=== PATIENT | female | born 1950 | race Hispanic/Latino ===

== ENCOUNTER 2020-06-03 07:48 | Outpatient (CLI) | payer MEDICARE ==
--- NOTE | 2020-06-03 08:45 | ULT ---
US Hepatic Doppler History: Cirrhosis Comparison: None. Findings: Real-time grayscale, color and spectral analysis of the liver was performed. Hepatic contour is nodular without overt mass. Vicious portion of pancreas, aorta and IVC are unremarkable. Portal vein is patent with antegrade flow. Hepatic veins are patent with antegrade flow. Liver measures 16.1 cm in length. Common bile duct measures 6 mm. Prior cholecystectomy. No intrahepa tic biliary dilatation. Hepatic artery is patent. Spleen is enlarged measuring 15.5 cm. Splenic artery and vein are patent. Impression: 1. Hepatic cirrhosis without mass. 2. Normal directional flow of the portal and hepatic veins. 3. Splenomegaly and sequela of portal hypertension.
== END 2020-06-03 07:49 | disposition home or self-care (01) ==
LOC: SCSULT 07:48
PROVIDERS: ATTEND Internal Medicine Gastroenterology
DX: K74.60 Unspecified cirrhosis of liver (principal); K72.90 Hepatic failure, unspecified without coma; R16.1 Splenomegaly, not elsewhere classified; K76.6 Portal hypertension
CPT/HCPCS: 76705

== ENCOUNTER 2020-07-08 05:46 | Outpatient (CLI) | payer MEDICARE, OTHER ==
[2020-07-09 13:49] LABS: SARS-CoV-2 MS2 Positive; SARS-CoV-2 N Gene Negative; SARS-CoV-2 S Gene Negative; SARS-CoV-2 by NAA Not Detected (NotDetected); SARS-CoV-2 orf1ab Negative
== END 2020-07-08 05:47 | disposition home or self-care (01) ==
LOC: LABBT 05:46
PROVIDERS: ATTEND Internal Medicine Gastroenterology
DX: Z01.812 Encounter for preprocedural laboratory examination (principal); Z20.828 Contact with and (suspected) exposure to other viral communicable diseases; I85.00 Esophageal varices without bleeding; D64.9 Anemia, unspecified; K31.7 Polyp of stomach and duodenum
CPT/HCPCS: 87635; U0003

== ENCOUNTER 2020-11-24 12:38 | Emergency (ER) | payer MEDICARE ==
[2020-11-24 13:31] LABS: #Eosinphils 0.5 thou/uL (0.0-0.7); #Lymphocytes 1.2 thou/uL (1.20-3.40); #Monocytes 0.6 thou/uL (0.11-0.59); #Neutrophils 2.7 thou/uL (1.40-6.50); %Basophils 0.6 % (0.0-1.0); %Eosinophils 9.2 % (0.0-10.0); %Lymphocytes 23.7 % (21.0-51.0); %Monocytes 12.4 % (0.0-10.0); %Neutrophils 54.2 % (42.0-75.0); Hemoglobin 12.7 g/dL (12.0-16.0); Mean Corpuscular Hemoglobin 32.6 pg (27.0-31.0); Mean Corpuscular Volume 95.9 fL (78.0-98.0); RBC Distribution Width 13.4 % (11.5-14.5); Red Blood Cell (RBC) Count 3.89 mill/uL (4.20-5.40)
[2020-11-24 13:48] LABS: Mean Platelet Volume 7.9 fL (7.4-10.4); Platelet Count 86 thou/uL (130-400); Platelet Morphology Comment Appears Decreased; RBC Morphology Normal
[2020-11-24 13:50] LABS: ALT (SGPT) 27 U/L (8-55); AST (SGOT) 38 U/L (5-34); Albumin 3.4 g/dL (3.4-4.8); Alkaline Phosphatase 101 U/L (40-110); Anion Gap 12 mmol/L (10-20); BUN (Urea Nitrogen) 24 mg/dL (9.8-20.1); Bilirubin, Total 1.7 mg/dL (0.2-1.2); Calc. Creatinine Clearance 0 mL/min (70-130); Calcium 9.1 mg/dL (7.8-10.44); Carbon Dioxide 25 mmol/L (23-31); Chloride 105 mmol/L (98-107); Glucose 112 mg/dL (83-110); Lipase 47 U/L (8-78); Magnesium 1.7 mg/dL (1.6-2.6); Potassium 3.7 mmol/L (3.5-5.1); Protein, Total 8.4 g/dL (6.0-8.3); Sodium 138 mmol/L (136-145)
--- NOTE | 2020-11-24 13:50 | RAD ---
PORTABLE CHEST 1 VIEW: Date: 11/24/2020 Time: 1339 hours HISTORY: Weakness, fatigue, dizziness, confusion. FINDINGS: The heart size is normal. The aorta is tortuous. The lungs are expanded without lobar consolidation, pneumothoraces, or pleural effusions. IMPRESSION: No radiographic evidence of acute cardiopulmonary process. POS: AH
--- NOTE | 2020-11-24 14:34 | CT ---
CT BRAIN WITHOUT CONTRAST: 11/24/20 HISTORY: Headache. Dizziness. Fatigue. Confusion, altered mental status. COMPARISON: None. FINDINGS: No evidence of acute infarct, hemorrhage, midline shift or abnormal extra-axial fluid collections are seen. The ventricular size is appropriate and the basilar cisterns patent. The bony calvarium is int act. There is mucosal disease in the left posterior ethmoid and sphenoid sinuses. IMPRESSION: No CT evidence of acute intracranial process. POS: AH
[2020-11-24 14:46] LABS: Bacteria/HPF 4+ HPF (None Seen); Bilirubin Negative (Negative); Blood, Urine Negative (Negative); Clarity Turbid (Clear); Glucose, Urine (Dipstick) Normal (Negative); Ketone, Urine Negative (Negative); Leukocyte 250 Leu/uL (Negative); Nitrite 2+ (Negative); Protein, Urine (Dipstick) 20 mg/dL (Neg-Trace); RBC/HPF 0-3 HPF (0-3); Specific Gravity, Urine 1.027 (1.002-1.036); Urobilinogen Normal mg/dL (Less than 2); pH, Urine 5.5 (5.0-9.0)
[2020-11-24] MEDS ORDERED: cefTRIAXone\\ROCEPHIN 1 GM VIAL ONE (15:31)
[2020-11-24 21:45] LABS: SARS-CoV-2 MS2 Positive; SARS-CoV-2 N Gene Negative; SARS-CoV-2 S Gene Negative; SARS-CoV-2 by NAA Not Detected (NotDetected); SARS-CoV-2 orf1ab Negative
--- NOTE | 2020-12-04 11:47 | EKG ---
Test Reason : Blood Pressure : / mmHG Vent. Rate : 058 BPM Atrial Rate : 058 BPM P-R Int : 158 ms QRS Dur : 076 ms QT Int : 448 ms P-R-T Axes : 081 037 047 degrees QTc Int : 439 ms Sinus bradycardia Otherwise normal ECG Confirmed by RHONDA CLEVELAND M.D. ([id number]), technical writer and editor BRET FLOYD ([id number] on 12/04/2020 11:47:25 AM Referred By: Confirmed By:RHONDA CLEVELAND M.D.
== END 2020-11-24 15:43 | disposition home or self-care (01) ==
LOC: ERS 12:38
DX: N39.0 Urinary tract infection, site not specified (principal); Z20.822 Contact with and (suspected) exposure to COVID-19; E11.9 Type 2 diabetes mellitus without complications; I10 Essential (primary) hypertension; K74.60 Unspecified cirrhosis of liver; Z79.899 Other long term (current) drug therapy
CPT/HCPCS: 70450; 71045; 82140; 83690; 83735; 84484; 87077; 87086; 87186; 93005; 96374; 99285; U0003; 36415; 80053; 81003; 81015; 84443; 85025; 87635; J0696

== ENCOUNTER 2020-12-05 12:48 | Emergency (ER) | payer MEDICARE ==
--- NOTE | 2020-12-05 13:35 | CT ---
CT Brain WO Con History: Fall Comparison: CT brain November 24, 2020 Findings: No acute hemorrhage or infarct. No midline shift or mass effect. Ventricular size and extra -axial CSF spaces are normal. Moderate mucosal thickening left sphenoid sinus. As there is a relatively clear. No retrobulbar hemat paxton. Impression: No acute posttraumatic intracranial sequela.
--- NOTE | 2020-12-05 13:39 | CT ---
CT Cervical Spine WO Con History: Fall Comparison: None. Findings: Flexible condyles are intact. Odontoid process is intact. No acute cervical spine fracture or malalignment. No acute traumatic facet joint widening. Skull base is intact. Transverse processes are intact. Lung apices relatively clear. Paraspinal soft tissues are unremarkab le. Prominent left T2 articular pillar nutrient foramen. Impression: No acute cervical spine fracture or malalignment.
[2020-12-05] MEDS ORDERED: Boostrix 0.5 ML (Tdap) VIAL ONE (14:18)
[2020-12-05 14:22] LABS: #Eosinphils 0.4 thou/uL (0.0-0.7); #Lymphocytes 0.9 thou/uL (1.20-3.40); #Monocytes 0.4 thou/uL (0.11-0.59); #Neutrophils 1.8 thou/uL (1.40-6.50); %Basophils 0.7 % (0.0-1.0); %Eosinophils 12.3 % (0.0-10.0); %Lymphocytes 24.7 % (21.0-51.0); %Monocytes 11.2 % (0.0-10.0); %Neutrophils 51.1 % (42.0-75.0); Hemoglobin 11.2 g/dL (12.0-16.0); Mean Corpuscular HGB CONC 33.5 g/dL (32.0-36.0); Mean Corpuscular Hemoglobin 32.8 pg (27.0-31.0); Mean Corpuscular Volume 97.9 fL (78.0-98.0); Mean Platelet Volume 7.1 fL (7.4-10.4); Platelet Count 72 thou/uL (130-400); RBC Distribution Width 13.2 % (11.5-14.5); Red Blood Cell (RBC) Count 3.43 mill/uL (4.20-5.40); White Blood Cell (WBC) Count 3.6 thou/uL (4.8-10.8)
[2020-12-05 14:26] LABS: INR-International Normal Ratio 1.2; PTT 39.4 sec (22.9-36.1); Prothrombin Time 15.7 sec (12.0-14.7)
[2020-12-05 14:41] LABS: ALT (SGPT) 28 U/L (8-55); AST (SGOT) 41 U/L (5-34); Albumin 3.1 g/dL (3.4-4.8); Alkaline Phosphatase 93 U/L (40-110); Anion Gap 15 mmol/L (10-20); BUN (Urea Nitrogen) 14 mg/dL (9.8-20.1); Bilirubin, Total 1.3 mg/dL (0.2-1.2); Calc. Creatinine Clearance 0 mL/min (70-130); Calcium 8.7 mg/dL (7.8-10.44); Carbon Dioxide 24 mmol/L (23-31); Chloride 106 mmol/L (98-107); Globulin 4.5 g/dL (2.4-3.5); Glucose 90 mg/dL (83-110); Protein, Total 7.6 g/dL (6.0-8.3); Sodium 141 mmol/L (136-145)
--- NOTE | 2020-12-05 15:13 | RAD ---
XR Hand Lt 3 View STANDARD History: Fall Comparison: None. Findings: No acute displaced fracture or malalignment. No radiopaque foreign object. Impression: No acute osseous abnormality.
--- NOTE | 2020-12-05 15:16 | RAD ---
XR Knee Lt 4 View STANDARD History: Trauma Comparison: None. Findings: No acute fracture or malalignment. No significant joint effusion. Impression: No acute osseous abnormality.
--- NOTE | 2020-12-05 15:16 | RAD ---
XR Knee Rt 4 View STANDARD History: Trauma. Pain Comparison: None. Findings: No acute fracture or malalignment. No significant joint effusion. Small medial compartment osteophyte formation. Impression: No acute osseous abnormality.
== END 2020-12-05 16:00 | disposition home or self-care (01) ==
LOC: ERS 12:48
DX: S09.90XA Unspecified injury of head, initial encounter (principal); S80.212A Abrasion, left knee, initial encounter; S80.211A Abrasion, right knee, initial encounter; M79.642 Pain in left hand; E11.9 Type 2 diabetes mellitus without complications; J45.909 Unspecified asthma, uncomplicated; I10 Essential (primary) hypertension; Z79.899 Other long term (current) drug therapy; W01.0XXA Fall on same level from slipping, tripping and stumbling without subsequent striking against object, initial encounter
CPT/HCPCS: 36415; 70450; 72125; 80053; 85025; 85610; 85730; 90471; 90715

== ENCOUNTER 2020-12-12 11:07 | Outpatient (CLI) | payer MEDICARE ==
[2020-12-12 23:13] LABS: SARS-CoV-2 PCR by NAA Not Detected (NotDetected)
== END 2020-12-12 11:08 | disposition home or self-care (01) ==
LOC: SCSRAD 11:07
PROVIDERS: ATTEND Nurse Practitioner Family
DX: Z20.822 Contact with and (suspected) exposure to COVID-19 (principal)
CPT/HCPCS: 87635; U0003; U0005

== ENCOUNTER 2021-07-08 06:54 | Outpatient (CLI) | payer MEDICARE | END 2021-07-08 06:55 | disposition home or self-care (01) | LOC: BICULT 06:54 | PROVIDERS: ATTEND Physician Assistant Medical | DX: K74.60 Unspecified cirrhosis of liver (principal); K75.81 Nonalcoholic steatohepatitis (NASH); D64.9 Anemia, unspecified; I85.10 Secondary esophageal varices without bleeding; K21.9 Gastro-esophageal reflux disease without esophagitis; R16.1 Splenomegaly, not elsewhere classified; K76.89 Other specified diseases of liver; Z90.49 Acquired absence of other specified parts of digestive tract | CPT/HCPCS: 76705 ==

== ENCOUNTER 2023-08-23 07:44 | Outpatient (CLI) | payer OTHER | END 2023-08-23 07:45 | disposition home or self-care (01) | LOC: ULT 07:44 | PROVIDERS: ATTEND Internal Medicine Gastroenterology | DX: K74.60 Unspecified cirrhosis of liver (principal); I85.10 Secondary esophageal varices without bleeding; K76.82 Hepatic encephalopathy; R16.1 Splenomegaly, not elsewhere classified; Z90.49 Acquired absence of other specified parts of digestive tract | CPT/HCPCS: 76705 ==

== ENCOUNTER 2024-10-28 08:26 | Outpatient (CLI) | payer MEDICARE | END 2024-10-28 08:27 | disposition home or self-care (01) | LOC: RAD 08:26 | PROVIDERS: ATTEND Internal Medicine Critical Care Medicine | DX: R06.00 Dyspnea, unspecified (principal); J98.11 Atelectasis; R91.8 Other nonspecific abnormal finding of lung field; Q25.46 Tortuous aortic arch | CPT/HCPCS: 71046 ==